=== PATIENT | male | born 1990 | race Caucasian/White ===

== ENCOUNTER → 2023-06-01 06:33 | Day surgery (SDC) | payer BC, SELFPAY | LOC: GI 06:33 | PROVIDERS: ATTENDING PHYSICIAN Surgery | DX: K62.5 Hemorrhage of anus and rectum (principal); R19.4 Change in bowel habit; K64.8 Other hemorrhoids; K64.4 Residual hemorrhoidal skin tags; K63.89 Other specified diseases of intestine | CPT/HCPCS: 45380; 88305; 88341; 88342 ==

== ENCOUNTER 2023-07-03 14:41 | Emergency (ER) | payer BC, SELFPAY ==
[2023-07-03 14:54] VITALS: BP 158/102
--- NOTE | 2023-07-03 16:30 | ED.GENMED ---
History of Present Illness
General
Chief Complaint: Fatigue
Time Seen by Provider: 07/03/23 16:28
Travel History
Have you had any contact with someone who has COVID-19?: No
Do you have any symptoms of coronavirus? Fever > 100 degrees, chills, cough, shortness of breath, sore throat, loss of taste or smell, muscle aches, or headache?: No
History of Present Illness
History of Present Illness:
HPI: Patient presents due to severe weakness. This started 3 days ago. He has been feeling somewhat of a general unwell feeling and developed somewhat of a headache and upper back discomfort as well. However he did not feel 'sick' to the point
that he could not go to work today. However he started Googling things and became increasingly concerned. He reports no rash or tick bites
EXAM:
GENERAL: Well appearing in no distress
HEENT: Moist oral mucosa
NECK: He has normal chin to chest with no meningeal signs
CARDIOVASCULAR: No murmurs, normal heart rate, regular rhythm, No chest wall tenderness
PULMONARY: No respiratory distress, breath sounds are clear and equal
ABDOMEN: Soft with no peritoneal signs, no tenderness
NEUROLOGIC: Excellent strength all extremities, no coordination deficits
PSYCHIATRIC: Appropriate mental status, normal insight and judgement
EXTREMITIES: Nontender, no edema, moves all extremities equally
SKIN: No rash, no lesions
TIME OF INITIAL ENCOUNTER: 4:30 PM
NUMBER AND COMPLEXITY OF PROBLEMS ADDRESSED AT THE ENCOUNTER
� Chronic conditions affecting care: GERD, depression
� Acute Exacerbation and/or Progression of Chronic Illness: This is an acute problem
� Differential Diagnosis includes: Exacerbation of depression, hypothyroidism, anemia, viral syndrome, meningitis very unlikely based on physical examination
AMOUNT AND/OR COMPLEXITY OF DATA TO BE REVIEWED AND ANALYZED
� I performed an independent evaluation of and my interpretation is:
EKG:
CT:
X-rays:
Laboratory Studies: White blood cell count is normal, chemistries unremarkable, Lyme is pending, monotest is negative
Other:
� Review of other/old records: I reviewed records�the patient had colonoscopy 1 month ago
� Clinical information was obtained by an independent historian: None needed
� Prescriptions/Medications Considered but not given:
� Further testing considered but not performed: Offered and considered LP testing however highly doubt bacterial meningitis (talked about the possibly of viral meningitis) however the patient declines LP which I feel is
reasonable.
RISK OF COMPLICATIONS AND/OR MORBIDITY OR MORTALITY OF PATIENT MANAGEMENT
� Social determinants of health affecting care: Lives at home
� Discussion with other providers:
� Escalation of care including admission/observation vs risk of discharge considered: The patient presents primarily due to weakness, his vital signs are relatively unremarkable with no fever. He has appropriate mental status
with no meningeal signs. I offered and recommended Toradol however the patient declines. I reassessed the patient at 7 PM. He appears comfortable. He is walking through the waiting room back to without any difficulty. He is very
well-appearing with normal neurologic status at time of discharge.
Past History
Past History
ED Past Medical History: None
ED Past Surgical History: None
Social History
Tobacco: Non-smoker
Alcohol: None
Drug: None
Personal:
Living: with family
Employment: Employed
Family History
Family History: Other (Noncontributory)
Phy Exam
Physical Exam
Physical Exam:
See HPI
Course
Orders/Labs/Results
Orders:
Orders
07/03/23 16:31
0.9% Sodium Chloride 1000 ml [Nss] 1,000 ml IV BOLUS
07/03/23 17:18
Complete Blood Count/With Diff Urgent
Comprehensive Metabolic Panel Urgent
Lyme Progressive Urgent
Magnesium Urgent
Monotest Urgent
TSH Reflex To Free T4 Urgent
Abnormal Lab Results
07/03/23
17:18
MPV 10.5 H fL
(7.4-10.4)
Absolute Monos (auto) 0.8 H 10^3/uL
(0.1-0.6)
Monocytes % 11.0 H %
(1.7-9.3)
07/03/23 17:18
07/03/23 17:18
Vital Signs
Initial and Last Documented VS:
Initial Vital Signs
Temp Pulse Resp BP Pulse Ox
98 F 104 16 158/102 98
07/03/23 14:54 07/03/23 14:54 07/03/23 14:54 07/03/23 14:54 07/03/23 14:54
Last Documented Vital Signs
Temp Pulse Resp BP Pulse Ox
98 F 84 16 131/83 99
07/03/23 14:54 07/03/23 18:30 07/03/23 16:47 07/03/23 18:30 07/03/23 16:47
*Critical Care Note
Total Time (30-74mins, 75-104mins- exclusive of procedures): Not Applicable
ED Attending Note
-
Portions of this chart may have been created with voice recognition software.� Occasional wrong word or��sound alike� substitutions may have occurred due to the inherent limitations of voice recognition software.
Discharge Plan
Departure
Patient Disposition: Home (Routine Discharge)
Date of Disposition: 07/03/23
Time of Disposition: 19:06
Patient with high blood pressure during this ER visit?: Yes
Discharge Problem:
Weakness
Instructions: Fatigue (DC)
Prescriptions:
No Action
citalopram 20 MG tablet
20 mg PO DAILY
Referrals:
Davi Tony DO [Family Provider] -
Activity Restrictions/Additional Instructions:
The cause of your symptoms is unclear. Your white blood cell count is normal. Hemoglobin is normal. Chemistry levels are normal. Thyroid testing is normal. Lyme test is pending. Monotest was negative. Return here if worse.
Interventions
Interventions:
*Risk Screen - Suicide Last Done: 07/03/23 14:56
*General Assessment Last Done: 07/03/23 14:56
*Neglect/Abuse Screening Last Done: 07/03/23 14:56
ED- Fall Risk Assessment Last Done: 07/03/23 16:47
*ED COVID-19 Vaccine History Last Done: 07/03/23 16:47
Discharge Date and Time
Print Language: TAMAZIGHT
[2023-07-03 16:46] VITALS: BMI 33.2
[2023-07-03 16:47] VITALS: BP 129/94
[2023-07-03] MEDS: NSS 1000 IV (17:23)
[2023-07-03 17:27] LABS: % Basophils 0.7 % (0-2); % Eosinophils 2.2 % (0-6); % Immature Granulocytes 0.3 % (0-0.5); % Lymphocytes 24.9 % (20.5-51.1); % Neutrophils 60.9 % (42.2-75.2); Absolute Basophils 0.1 10^3/uL (0-0.2); Absolute Eosinophils 0.2 10^3/uL (0-0.7); Absolute Lymphocytes 1.7 10^3/uL (1.2-3.4); Absolute Monocytes 0.8 10^3/uL (0.1-0.6); Absolute Neutrophils 4.2 10^3/uL (1.4-6.5); Hematocrit 42.4 % (39.0-52.0); Mean Corp Hgb Conc. 35.4 g/dL (33.0-37.0); Mean Corpuscular Hgb 29.7 pg (27.0-31.0); Mean Platelet Volume 10.5 fL (7.4-10.4); Nucleated Red Blood Cells % 0 % (-); Platelet Count 238 10^3/uL (130-400); Red Blood Cell Count 5.05 10^6/uL (4.70-6.10); Red Cell Dist. Width 11.8 % (11.5-14.5); White Blood Cell Count 6.9 10^3/uL (4.8-10.8)
--- NOTE | 2023-07-03 17:28 | EDRN ---
Report given to Mary LOGAN on pt. Pt ambulated w/ Mary LOGAN to RP at this time.
[2023-07-03 17:43] LABS: Monotest Negative (Negative)
[2023-07-03 17:54] LABS: ALT (SGPT) 50 U/L (0-50); AST (SGOT) 38 U/L (17-59); Albumin 4.1 g/dl (3.5-5.0); Alkaline Phosphatase 64 U/L (38-126); Blood Urea Nitrogen 12 mg/dl (9-20); Calcium 9.2 mg/dl (8.4-10.2); Carbon Dioxide 27 mmol/L (22-30); Chloride 104 mmol/L (98-107); Estimated Creatinine Clearance > 125 ml/min; Glucose 91 mg/dl (70-99); Magnesium 2.1 mg/dl (1.6-2.3); Potassium 4.3 mmol/L (3.5-5.1); Sodium 135 mmol/L (135-145); Total Bilirubin 0.6 mg/dl (0.2-1.3); Total Protein 6.8 g/dl (6.3-8.2); eGFR > 60.00
[2023-07-03 18:30] VITALS: BP 131/83
[2023-07-03 18:50] LABS: TSH Reflex To Free T4 1.24 uIU/ml (0.47-4.68)
[2023-07-03 19:18] VITALS: BP 131/83
[2023-07-06 16:26] LABS: Lyme Antibody Screen, EIA Negative (Negative)
== END 2023-07-03 19:19 | disposition home or self-care (01) ==
LOC: EMR 14:41
PROVIDERS: EMERGENCY PHYSICIAN Emergency Medicine; FAMILY PHYSICIAN Family Medicine
DX: R53.1 Weakness (principal)
CPT/HCPCS: 99283; 80053; 83735; 84443; 85025; 86308; 86618

== ENCOUNTER → 2023-10-02 10:58 | Outpatient (REF) | payer BC, SELFPAY | LOC: RAD 10:58 | PROVIDERS: ATTENDING PHYSICIAN Physician Assistant; FAMILY PHYSICIAN Family Medicine | DX: G89.29 Other chronic pain (principal); M25.551 Pain in right hip; M25.552 Pain in left hip; M45.0 Ankylosing spondylitis of multiple sites in spine; M54.50 Low back pain, unspecified; Z82.69 Family history of other diseases of the musculoskeletal system and connective tissue | CPT/HCPCS: 72114; 72202 ==

== ENCOUNTER 2024-07-17 07:22 | Emergency (ER) | payer BC, SELFPAY ==
--- NOTE | 2024-07-17 07:33 | ED.GENMED ---
History of Present Illness
General
Chief Complaint: Rabies
Source: patient
Time Seen by Provider: 07/17/24 07:24
History of Present Illness
History of Present Illness:
34-year-old male who states that he found a bat flying around in his home and all the night. He states that he may have been exposed as he was sleeping and his bedroom door was open. He denies any symptoms. Patient received postexposure
prophylaxis in 2020.
Past History
Past History
ED Past Medical History: Other (ADHD)
ED Past Surgical History: None
Social History
Tobacco: Non-smoker
Alcohol: None
Drug: None
Personal:
Living: with family
Employment: Employed
Family History
Family History: Other (Noncontributory)
Phy Exam
Physical Exam
Physical Exam:
GENERAL: Alert , in no apparent distress
EYE: pupils equal and reactive
NECK: Supple, no significant adenopathy.
ENT: o/p clr, mmm.
CARDIAC: Regular rate and rhythm .
LUNGS: Clear breath sounds bilaterally, no acute respiratory distress, no wheezes/rales/rhonchi
ABDOMEN: Soft, without focal tenderness, no r/g, no cvat
NEUROLOGICAL: Alert and oriented, no focal neuro deficits
SKIN: Warm and dry, skin intact.
MUSCULOSKELETAL: No edema, well perfused.
PSYCH: Normal and appropriate interaction.
Course
Orders/Labs/Results
Orders:
Orders
07/17/24 07:45
Rabies Vaccine (Pcec)/Pf [Rabavert Rabies Vacc W-Diluent] 2.5 unit IM .ONCE ONE
Vital Signs
Initial and Last Documented VS:
Initial Vital Signs
Pulse BP Pulse Ox
73 134/87 98
07/17/24 07:43 07/17/24 07:43 07/17/24 07:43
Last Documented Vital Signs
Pulse BP Pulse Ox
73 134/87 98
07/17/24 07:43 07/17/24 07:43 07/17/24 07:43
*Critical Care Note
Total Time (30-74mins, 75-104mins- exclusive of procedures): Not Applicable
Update Note
Update Note:
Patient presents to the Emergency Department with ___possible rabies exposure
Number and Complexity of Problems Addressed at the Encounter
� Chronic conditions affecting care:
� Acute Exacerbation and/or Progression of Chronic Illness:
� Differential Diagnosis includes: But not limited to possible rabies exposure, possible bite
Amount and/or Complexity of Data to be Reviewed and Analyzed
� I performed an independent evaluation of and my interpretation is:
EKG:
CT:
Xrays:
Laboratory Studies:
Other:
� Review of other/old records reveals:
� Clinical information was obtained by an independent historian:
� Prescriptions/Medications Considered but not given:
� Further testing considered but not performed:
Risk of Complications and/or Morbidity or Mortality of Patient Management
� Social determinants of health affecting care:
� Discussion with other providers (PCP, Hospitalists, Consultants, etc):
� Escalation of care including admission/observation vs risk of discharge considered: Discussed with patient indications for him to receive rabies vaccine on day 0 and 3 and he expresses understanding. Given that he had PCP in
the past and has not immunocompromise he does not really need immunoglobulin today and only needs day 013.
ED Attending Note
-
Portions of this chart may have been created with voice recognition software.� Occasional wrong word or��sound alike� substitutions may have occurred due to the inherent limitations of voice recognition software.
Discharge Plan
Departure
Patient Disposition: Home (Routine Discharge)
Date of Disposition: 07/17/24
Time of Disposition: 07:33
Patient with high blood pressure during this ER visit?: No
Condition: Good
Discharge Problem:
RABIES VACCINATED ADMINISTER
Prescriptions:
New
Imovax Rabies Vaccine (PF) 2.5 unit recon soln
2.5 unit IM ONCE Qty: 1 0RF
No Action
citalopram 20 MG tablet
20 mg PO DAILY
Referrals:
Davi Tony DO [Family Provider] -
Activity Restrictions/Additional Instructions:
YOU WILL NEED A REPEAT DOSE OF THE RABIES VACCINE ON THURSDAY. IF YOU DEVELOP FEVER, CHILLS, CHEST PAIN, SHORTNESS OF BREATH, OR OTHER WORRISOME SIGNS, PLEASE RETURN TO THE ER IMMEDIATELY
Interventions
Interventions:
*Risk Screen - Suicide Last Done: 07/17/24 09:23
*General Assessment Last Done: 07/17/24 09:23
*Neglect/Abuse Screening Last Done: 07/17/24 09:23
*ED- Fall Risk Assessment Last Done: 07/17/24 09:23
*ED COVID-19 Vaccine History Last Done: 07/17/24 09:23
*Nursing Disposition Last Done: 07/17/24 09:24
Discharge Date and Time
Discharge Date/Time: 07/17/24 09:25
Print Language: JORDANIAN
[2024-07-17 07:43] VITALS: BP 134/87
[2024-07-17] MEDS: RABAVERT RABIES VACC W-DILUENT 2.5 UNIT IM (09:05)
== END 2024-07-17 09:25 | disposition home or self-care (01) ==
LOC: EMR 07:22
PROVIDERS: EMERGENCY PHYSICIAN Emergency Medicine; FAMILY PHYSICIAN Family Medicine
DX: Z20.3 Contact with and (suspected) exposure to rabies (principal); Z23 Encounter for immunization
CPT/HCPCS: 90471; 99281; 90675

== ENCOUNTER 2024-07-20 13:56 | Outpatient (RCR) | payer BC, SELFPAY ==
[2024-07-20 14:16] VITALS: BP 133/98
[2024-07-20] MEDS: RABAVERT RABIES VACC W-DILUENT 2.5 UNIT IM (14:24)
== END 2024-07-30 23:59 | disposition home or self-care (01) ==
LOC: OID 13:56
PROVIDERS: ATTENDING PHYSICIAN Emergency Medicine; FAMILY PHYSICIAN Family Medicine
DX: Z20.3 Contact with and (suspected) exposure to rabies (principal); Z23 Encounter for immunization
CPT/HCPCS: 90471; 90675